=== PATIENT | female | born 1950 | race Caucasian/White ===

== ENCOUNTER 2016-11-29 16:41 | Emergency (ER) | payer OTHER ==
--- NOTE | ~2016-11-29 | EKG ---
PATIENT: ZEYAD HARDIN UNIT #: [id number] Ventricular Rate: 72 BPM Atrial Rate: 72 BPM P-R Interval: 170 ms QRS Duration: 84 ms Q-T Interval: 384 ms QTC Calculation(Bezet): 420 ms P [place]: 73 degrees Calculated R [place]: 49 degrees Calculated T [place]: 66 degrees Diagnosis Line: Normal sinus rhythm Diagnosis Line: Possible Left atrial enlargement Diagnosis Line: Borderline ECG Diagnosis Line: When compared with ECG of 29-JUL-2016 10:26, Diagnosis Line: No significant change was found Diagnosis Line: Confirmed by ANGELA POE MD ([id number]) on Diagnosis Line: 12/02/2016 12:00:44 AM INTERPRETING MD: LUI BARNEY
--- NOTE | ~2016-11-29 | CT71 ---
[facility] A Service of [facility] RADIOLOGY TEXT RESULTS PATIENT: ZEYAD HARDIN LOCATION: [facility] : 50 UNIT #: [id number] AGE: [address]: Shannan Beck MD SEX: F ORDER DR: [id number] [facility] [address] [place], [place] [address] [id number] E MR#: [id number] #: [id number] NAME: ZEYAD HARDIN : 1950 SEX: F STUDY DATE/TIME: 11/29/2016 17:39 UNIT: [facility] ROOM: STUDY DESCRIPTION: CT Head Wo Contrast Attending Physician: Shannan Beck M.D. Ordering Physician: Shannan Beck M.D. Primary Care Physician: Jabari Herrmann M.D. MEDICAL IMAGING REPORT This report is preliminary unless electronic signature is present EXAM CT head, 11/29/2016. HISTORY Focal neurologic deficit, right-sided weakness and numbness. Right facial droop. Weakness, confusion, unsteady, dizzy since . Prior history of hysterectomy, bladder cancer, left breast surgery, cataracts, tubal, bladder tumor. COMPARISON STUDIES No prior CT head for comparison. TECHNIQUE CT head performed skull base through vertex without intravenous contrast. This CT exam was performed with one or more of the following radiation dose reduction techniques: automatic exposure control, adjustment of mA and/or kV according to patient size, and iterative reconstruction. FINDINGS Findings discussed directly with Dr. Beck immediately prior to this dictation. The brain stem shows no acute abnormality. Cerebellum appears normal. In the posterior and superior left parietal lobe, there is an intraparenchymal hemorrhage. Hyperdense products of hemorrhage measure approximately 5 cm in fuvvizxa-pv-zjbblqxjc diameter and approximately 1.9 cm transversely. There is a zone of peripheral edema. The overall area of mass effect related to the intraparenchymal hematoma measures 2.6 cm x 6.3 cm transversely and extends in craniocaudal dimension approximately 4-5 cm. There is effacement of the atrium and much of the temporal horn of the left lateral ventricle. I cannot exclude some extension of products of hemorrhage into the left lateral ventricle. There is significant loss of STS. [facility] A Service of [facility] RADIOLOGY TEXT RESULTS PATIENT: ZEYAD HARDIN LOCATION: [facility] : 50 UNIT #: [id number] AGE: [address]: Shannan Beck MD SEX: F ORDER DR: sulcation in the left cerebral hemisphere. There is tlzw-cb-vlraa midline shift by about 6 mm at the level of the septum pellucidum. I believe there is a degree of true wubz-ch-daurq midline shift. Some of the appearance could be exaggerated by angulation of the patient's head in the scanner. Cause for the parietal lobe hemorrhage is unclear. Differential diagnosis could include hypertensive hemorrhage, amyloid angiopathy, underlying neoplastic disease, or underlying vascular malformation. Evaluation with MRI recommended, particularly after at least partial resolution of the acute products of hemorrhage. In addition, there is a subdural hematoma adjacent to the left frontal lobe predominantly. It is subtle, but measures up to about 4 mm in maximum width and is likely contributing to mass effect on the left cerebral hemisphere. The right cerebral hemisphere shows no acute abnormality. No acute basal ganglia abnormality. Ventricles, cisterns, and sulci in the right cerebral hemisphere are within normal limits of size and contour. The intraorbital soft tissues are unremarkable. The visualized paranasal sinuses and mastoid air cells are clear. No fracture. IMPRESSION 1. Findings discussed directly with Dr. Beck immediately prior to this dictation. Large intraparenchymal hemorrhage, left posterior and superior parietal lobe, with surrounding edema. The hyperdense products of acute hemorrhage measure about 5 cm anteriorly to posteriorly by about 1.9 cm transversely. The intraparenchymal hemorrhage and surrounding edema overall measures about 6.3 cm x 2.6 cm x 4-5 cm. There is localized mass effect on the left lateral ventricular atrium, temporal horn of lateral ventricle. I cannot entirely exclude some intraventricular products of hemorrhage, and attention at follow-up is recommended. There is loss of sulcation in the left cerebral hemisphere to a significant extent. In addition, there is a subtle left frontal subdural hematoma measuring about 4 mm in maximum width. There is overall approximately 6 mm of kzob-ep-qmikx midline shift at level of the septum pellucidum. The degree of midline shift may be slightly exaggerated in appearance, due to angulation of the patient's head in the CT scanner. There is no evidence of downward herniation. 2. No other areas of hemorrhage within the brain. 3. The right cerebral hemisphere appears intrinsically normal. 4. Cause for the patient's left parietal hemorrhage is unclear. Differential diagnostic considerations include hypertensive hemorrhage, amyloid angiopathy, underlying vascular malformation or underlying neoplastic disease. Assessment with MRI, if the patient is a candidate, recommended in the near term. 5. Remainder of study unremarkable. See details in body of report above. Dictated by... Cj Haynes M.D. [facility] A Service of [facility] RADIOLOGY TEXT RESULTS PATIENT: ZEYAD HARDIN LOCATION: [facility] : 50 UNIT #: [id number] AGE: [address]: Shannan Beck MD SEX: F ORDER DR: THIS IS AN ELECTRONICALLY VERIFIED REPORT Cj Haynes M.D. at 12/09/2016 2:13 PM JANAE/ed TD: 11/30/2016 13:21 JOB #: [id number] MEDICAL IMAGING REPORT COPY
[2016-11-29 16:29] LABS: BASOPHIL# 0.2 X10e3 (0-0.3); BASOPHIL% 1.1 % (0-2.5); DIFF IND NO; EOSINOPHIL# 0.1 X10e3 (0-0.7); EOSINOPHIL% 0.7 % (0.0-7.0); HEMATOCRIT 37.5 % (35.0-45.0); HEMOGLOBIN 12.7 gm/dL (12.0-16.0); LYMPHOCYTE# 3.9 X10e3 (1.0-3.5); LYMPHOCYTE% 27.2 % (17.0-45.0); MEAN CELL VOLUME 84.3 FL (83-96); MEAN CORPUSCULAR HEMOGLOBIN 28.6 PG (28-34); MEAN PLATELET VOLUME 7.9 FL (6.5-11.5); MONOCYTE% 7.4 % (3.0-12.0); NEUTROPHIL% 63.6 % (40-75); PLATELET COUNT 276 X10e3 (140-420); RED BLOOD COUNT 4.45 X10e (3.90-5.30); RED CELL DISTRIBUTION WIDTH 13.8 % (11.0-15.5); WHITE BLOOD COUNT 14.2 X10e3 (4.0-10.5)
[2016-11-29 16:32] LABS: POC - CKMB <1.0 ng/mL (0.0-7.9); POC - TROPONIN <0.05 ng/mL (<=0.05)
[~2016-11-29 16:41] MED LIST: LORTAB 7.5-5001 TAB PO; NO MEDICATIONS
[2016-11-29 17:26] LABS: ALBUMIN SERUM 4.3 g/dL (3.5-5.0); ALKALINE PHOSPHATASE 55 U/L (32-92); ALT (SGPT) 16 U/L (10-40); AST (SGOT) 15 U/L (10-42); BILIRUBIN, DIRECT 0.1 mg/dL (0.0-0.2); BILIRUBIN,INDIRECT 0.5 mg/dL (0.0-0.9); BILIRUBIN,TOTAL 0.6 mg/dL (0.2-2.0); BLOOD UREA NITROGEN 12 mg/dL (9-23); CALCIUM SERUM 9.1 mg/dL (8.4-10.2); CARBON DIOXIDE 28 mmol/L (22-31); CHLORIDE 103 mmol/L (100-111); CREATININE SERUM 0.8 mg/dL (0.6-1.4); GLOM FILT RATE Estimated ABOVE60 mL/min (>60); GLUCOSE FASTING 97 mg/dL (70-110); MAGNESIUM 2.2 mg/dL (1.6-3.0); POTASSIUM 3.8 mmol/L (3.5-5.1); PROTEIN TOTAL SERUM 7.3 g/dL (6.0-8.3); SODIUM 136 mmol/L (135-145)
== END 2016-11-29 19:05 | disposition hospice, home (50) ==
LOC: CED 16:41
PROVIDERS: Student in an Organized Health Care Education/Training Program
DX: I62.00 Nontraumatic subdural hemorrhage, unspecified (principal); R29.707 NIHSS score 7; Z87.891 Personal history of nicotine dependence; Z98.890 Other specified postprocedural states
CPT/HCPCS: 36415; 70450; 80048; 80076; 82553; 83735; 83880; 84484; 85025; 85610; 85730; 93005; 96365; 99284; 99285; 99291; J1953